=== PATIENT | male | born 1935 | race Caucasian/White ===

== ENCOUNTER 2016-10-31 07:54 | Outpatient (CLI) | payer MEDICARE, OTHER ==
[2016-10-31 13:42] LABS: BASOPHILS # (AUTO) 0.1 10^3/uL (0.0-0.1); EOSINOPHILS # (AUTO) 0.1 10^3/uL (0.0-0.7); EOSINOPHILS % (AUTO) 2.8 %; HCT - HEMATOCRIT 42.9 % (42.0-52.0); HGB - HEMOGLOBIN 14.6 g/dL (14.0-18.0); LYMPHOCYTES # (AUTO) 1.2 10^3/uL (1.5-3.5); LYMPHOCYTES % (AUTO) 23.3 %; MEAN CORPUSCULAR HEMOGLOBIN 32.1 pg (27.0-31.0); MEAN CORPUSCULAR HGB CONC 34.1 g/dL (32.0-36.0); MEAN PLATELET VOLUME 8.5 fL (7.4-11.4); MONOCYTES # (AUTO) 0.5 10^3/uL (0.0-1.0); MONOCYTES % (AUTO) 10.1 %; NEUTROPHILS # (AUTO) 3.2 10^3/uL (1.5-6.6); NEUTROPHILS % (AUTO) 62.8 %; NUCLEATED RED BLOOD CELLS AUTO 0.1 /100WBC; RED BLOOD COUNT 4.56 10^6/uL (4.70-6.10); RED CELL DISTRIBUTION WIDTH 12.9 % (12.0-15.0)
[2016-10-31 14:00] LABS: ALBUMIN/GLOBULIN RATIO 1.7 (1.0-2.2); BILIRUBIN,TOTAL 0.7 mg/dL (0.2-1.0); CALCIUM 9.8 mg/dL (8.5-10.3); CREATININE 0.8 mg/dL (0.6-1.2); POTASSIUM 4.1 mmol/L (3.5-5.0); TOTAL PROTEIN 7.2 g/dL (6.7-8.2)
[2016-10-31 14:30] LABS: HEMOGLOBIN A1C 0.62 g/dL
== END 2016-10-31 07:55 | disposition home or self-care (01) ==
LOC: LAB.R 07:54
PROVIDERS: ATTEND Internal Medicine
DX: E78.2 Mixed hyperlipidemia (principal); R73.09 Other abnormal glucose; Z79.899 Other long term (current) drug therapy
CPT/HCPCS: 80053; 83036; 85025

== ENCOUNTER 2017-11-03 06:45 | Outpatient (CLI) | payer MEDICARE ==
[2017-11-03 07:05] LABS: BASOPHILS # (AUTO) 0.1 10^3/uL (0.0-0.1); EOSINOPHILS # (AUTO) 0.2 10^3/uL (0.0-0.7); EOSINOPHILS % (AUTO) 3.5 %; HGB - HEMOGLOBIN 14.5 g/dL (14.0-18.0); LYMPHOCYTES # (AUTO) 1.5 10^3/uL (1.5-3.5); LYMPHOCYTES % (AUTO) 24.7 %; MEAN CORPUSCULAR HEMOGLOBIN 32.1 pg (27.0-31.0); MEAN CORPUSCULAR HGB CONC 33.8 g/dL (32.0-36.0); MEAN CORPUSCULAR VOLUME 94.7 fL (80.0-94.0); MEAN PLATELET VOLUME 7.6 fL (7.4-11.4); MONOCYTES # (AUTO) 0.5 10^3/uL (0.0-1.0); MONOCYTES % (AUTO) 8.3 %; NEUTROPHILS # (AUTO) 3.8 10^3/uL (1.5-6.6); NEUTROPHILS % (AUTO) 62.5 %; PLT - PLATELET COUNT 221 10^3/uL (130-450); RED BLOOD COUNT 4.53 10^6/uL (4.70-6.10); WHITE BLOOD COUNT 6.1 x10^3/uL (4.8-10.8)
[2017-11-03 07:21] LABS: ALBUMIN 4.1 g/dL (3.2-5.5); ALBUMIN/GLOBULIN RATIO 1.3 (1.0-2.2); ALKALINE PHOSPHATASE 53 IU/L (42-121); ALT ALANINE AMINOTRANSFERASE 18 IU/L (10-60); AST ASPARTATE AMINOTRANSFERASE 18 IU/L (10-42); BILIRUBIN,TOTAL 0.7 mg/dL (0.2-1.0); BUN - BLOOD UREA NITROGEN 18 mg/dL (6-20); CALCIUM 9.6 mg/dL (8.5-10.3); CARBON DIOXIDE - CO2 29 mmol/L (21-32); CHLORIDE 99 mmol/L (101-111); CHOL/HDL RATIO 4.3 (<5.0); CHOLESTEROL 190 mg/dL; CREATININE 0.8 mg/dL (0.6-1.2); GFR - MDRD 93 (>89); GLUCOSE 131 mg/dL (70-100); HDL CHOLESTEROL 44 mg/dL; LDL CHOLESTEROL,CALCULATED 115 mg/dL; LDL/HDL RATIO 2.6 (<3.6); SODIUM 135 mmol/L (135-145); TOTAL PROTEIN 7.3 g/dL (6.7-8.2); VLDL CHOLESTEROL 31 mg/dL
[2017-11-03 07:46] LABS: HB2 TOTAL 15.8 g/dL; HEMOGLOBIN A1C 0.64 g/dL; HEMOGLOBIN A1C % 5.9 % (4.6-6.2)
== END 2017-11-03 06:46 | disposition home or self-care (01) ==
LOC: LAB 06:45
PROVIDERS: ATTEND Internal Medicine
DX: K22.70 Barrett's esophagus without dysplasia (principal); E78.5 Hyperlipidemia, unspecified; E11.9 Type 2 diabetes mellitus without complications; Z79.899 Other long term (current) drug therapy; Z12.5 Encounter for screening for malignant neoplasm of prostate
CPT/HCPCS: 36415; 80053; 80061; 83036; 85025; G0103; 83721; 84153

== ENCOUNTER 2018-08-10 07:32 | Outpatient (CLI) | payer MEDICARE ==
[2018-08-10 08:41] LABS: ALBUMIN 4.2 g/dL (3.2-5.5); ALBUMIN/GLOBULIN RATIO 1.5 (1.0-2.2); ALKALINE PHOSPHATASE 54 IU/L (42-121); ALT ALANINE AMINOTRANSFERASE 17 IU/L (10-60); AST ASPARTATE AMINOTRANSFERASE 19 IU/L (10-42); BILIRUBIN,TOTAL 0.8 mg/dL (0.2-1.0); BUN - BLOOD UREA NITROGEN 17 mg/dL (6-20); CALCIUM 9.4 mg/dL (8.5-10.3); CARBON DIOXIDE - CO2 28 mmol/L (21-32); CHLORIDE 100 mmol/L (101-111); CHOL/HDL RATIO 4.1 (<5.0); CHOLESTEROL 191 mg/dL; CREATININE 0.8 mg/dL (0.6-1.2); GFR - MDRD 93 (>89); GLUCOSE 144 mg/dL (70-100); HDL CHOLESTEROL 47 mg/dL; LDL CHOLESTEROL,CALCULATED 118 mg/dL; LDL/HDL RATIO 2.5 (<3.6); SODIUM 135 mmol/L (135-145); VLDL CHOLESTEROL 26 mg/dL
== END 2018-08-10 07:33 | disposition home or self-care (01) ==
LOC: LAB 07:32
PROVIDERS: ATTEND Internal Medicine
DX: R73.02 Impaired glucose tolerance (oral) (principal); E78.5 Hyperlipidemia, unspecified; K21.9 Gastro-esophageal reflux disease without esophagitis
CPT/HCPCS: 36415; 80053; 80061; 82951; 83721

== ENCOUNTER 2018-08-13 07:33 | Outpatient (CLI) | payer MEDICARE | END 2018-08-13 07:34 | disposition home or self-care (01) | LOC: LAB 07:33 | PROVIDERS: ATTEND Internal Medicine | DX: R73.02 Impaired glucose tolerance (oral) (principal); E78.5 Hyperlipidemia, unspecified; K21.9 Gastro-esophageal reflux disease without esophagitis | CPT/HCPCS: 36415; 82951 ==

== ENCOUNTER 2021-01-11 09:00 | Outpatient (CLI) | payer MEDICARE ==
--- NOTE | 2021-01-12 09:30 | XRAY Report ---
PROCEDURE: Ankle 3 View LT INDICATIONS: L ANKLE PX TECHNIQUE: 3 weightbearing views of the ankle were acquired. COMPARISON: None FINDINGS: Bones: Mildly displaced oblique fracture of the distal left fibula.. Ankle mortise is normally align ed. No suspicious bony lesions. Soft tissues: No tibiotalar joint effusion. Achilles tendon appears normal. IMPRESSION: Left fibular fracture. Reviewed by: Fransisco Castle MD on 01/12/2021 9:29 AM PDT Approved by: Fransisco Castle MD on 01/12/2021 9:29 AM PDT Station ID: [id number]
== END 2021-01-11 23:59 | disposition home or self-care (01) ==
LOC: DI.N 09:00
PROVIDERS: ATTEND Physician Assistant
DX: S82.832A Other fracture of upper and lower end of left fibula, initial encounter for closed fracture (principal)

== ENCOUNTER 2021-03-26 06:55 | Outpatient (CLI) | payer MEDICARE ==
[2021-03-26 07:46] LABS: ALBUMIN 4.7 g/dL (3.2-5.5); ALBUMIN/GLOBULIN RATIO 1.7 (1.0-2.2); ALKALINE PHOSPHATASE 60 IU/L (42-121); ALT ALANINE AMINOTRANSFERASE 20 IU/L (10-60); AST ASPARTATE AMINOTRANSFERASE 18 IU/L (10-42); BUN - BLOOD UREA NITROGEN 21 mg/dL (6-20); CALCIUM 10.1 mg/dL (8.5-10.3); CARBON DIOXIDE - CO2 27 mmol/L (21-32); CHLORIDE 101 mmol/L (101-111); CHOL/HDL RATIO 3.1 (<5.0); CHOLESTEROL 209 mg/dL; CREATININE 0.8 mg/dL (0.6-1.2); GFR - MDRD 92 (>89); GLUCOSE 140 mg/dL (70-100); HDL CHOLESTEROL 67 mg/dL; LDL CHOLESTEROL,CALCULATED 122 mg/dL; LDL/HDL RATIO 1.8 (<3.6); POTASSIUM 4.3 mmol/L (3.5-5.0); SODIUM 138 mmol/L (135-145); TOTAL PROTEIN 7.5 g/dL (6.7-8.2); TRIGLYCERIDES 101 mg/dL; VLDL CHOLESTEROL 20 mg/dL
[2021-03-26 10:39] LABS: ESTIMATED AVERAGE GLUCOSE 131 mg/dL (70-100); HEMOGLOBIN A1c% 6.2 % (4.27-6.07)
== END 2021-03-26 06:56 | disposition home or self-care (01) ==
LOC: LAB 06:55
PROVIDERS: ATTEND Internal Medicine
DX: E11.9 Type 2 diabetes mellitus without complications (principal); N40.1 Benign prostatic hyperplasia with lower urinary tract symptoms; N13.8 Other obstructive and reflux uropathy; K21.9 Gastro-esophageal reflux disease without esophagitis
CPT/HCPCS: 36415; 80053; 80061; 83036; 83721

== ENCOUNTER 2022-11-04 11:35 | Emergency (ER) | payer MEDICARE ==
[2022-11-04] MEDS ORDERED: BUFFERED LIDOCAINE 10 ML SYRINGE SUBQ STA (12:27)
[2022-11-04] MEDS ORDERED: TETANUS/DIPHTHERIA/PERTUSSIS 0.5 ML SYRINGE IM ONE (12:30)
[2022-11-04] MEDS ORDERED: cephALEXin 250 MG CAPSULE PO STA (12:31)
--- NOTE | 2022-11-04 12:31 | ED Physician Documentation ---
PD HPI UPPER EXT INJURY - Stated complaint Stated Complaint: LT FINGER LAC - Chief complaint Chief Complaint: Laceration - History obtained from History obtained from: Patient (Right-handed 86-year-old gentleman was using a hoof trimmer this morning and cut his nondominant, left second finger just prior to arrival. Tetanus status is unknown. No other injuries.) PD PAST MEDICAL HISTORY - Present Medications Home Medications: Ambulatory Orders Medication Instructions Recorded Confirmed cephALEXin [Keflex] 500 mg PO Q6H #28 cap 11/04/22 - Allergies Allergies/Adverse Reactions: Allergies Allergy/AdvReac Type Severity Reaction Status Date / Time No Known Drug Allergies Allergy Verified 11/04/22 11:51 PD ED PE NORMAL - Vitals Vital signs reviewed: Yes - General General: Alert and oriented X 3, No acute distress - Extremities Extremities: Other (There is a slightly greater than 2 cm curved laceration on the radial side of the left index finger at the level of the mid phalanx. No distal neurovascular compromise.) - Neuro Neuro: Alert and oriented X 3, Normal speech Results - Vitals Vitals: Vital Signs - 24 hr 11/04/22 11:48 Temperature 36.2 C L Heart Rate 66 Respiratory 16 Rate Blood Pressure 130/63 O2 Saturation 98 Oxygen O2 Source Room air - Rads (name of study) L 2nd finger Relevant Findings:: Final report received, EMP independent interpretation of test Procedures - Laceration (location) L 2nd finger Length in cm: 3 Wound type: Stellate Neurovascular status: Sensory intact, Motor intact, Vascular intact Anesthesia: Lidocaine 1% (Digital block with buffered lidocaine with excellent anesthesia.) Wound preparation: Chlorhexadine, Irrigated copiously NS, Wound explored, To the base, debridement of wound edges (traumatic laceration/avulsion) Skin layer closure: Nylon, Interrupted, Size #-0 - enter number (4-0), Sutures - enter # (10) Other: Patient tolerated well, No complications, Neurovascular intact, Tetanus booster given Departure - Departure Disposition: 01 Home, Self Care Clinical Impression: Open fracture of finger of left hand, Laceration Condition: Good Record reviewed to determine appropriate education?: Yes Instructions: ED Fx Finger Open, ED Laceration Hand Follow-Up: [facility] [Provider Group] Prescriptions: cephALEXin [Keflex] 500 mg PO Q6H #28 cap Comments: You should follow-up with the orthopedic office in about a week, call today for an appointment in about a week for recheck. For wound care: You can wash briefly with soap and water and then apply bacitracin ointment which is available [id number] and a gauze wrap and then the splint over that. Tylenol and/or ibuprofen as needed for pain and elevation for pain. Return if worse. Plan for suture removal in about 2 weeks. You can follow-up with your primary for this or the orthopedics office may handle that as well.
--- NOTE | 2022-11-04 12:55 | XRAY Report ---
PROCEDURE: Finger(s) LT INDICATIONS: Trauma TECHNIQUE: AP hand, 2 views of the second finger(s) acquired. COMPARISON: None FINDINGS: Bones: There are bony fragments at the distal shaft of the middle phalanx of the second finger near the DIP joint, likely representing acute fracture fragments off the lateral aspect of the bone. No s uspicious bony lesions. Soft tissues: No suspicious soft tissue calcifications or masses. IMPRESSION: Small fracture fragments at the lateral aspect of the distal middle phalanx of the second finger near the DIP joint Reviewed by: Red Perez MD on 11/04/2022 12:54 PM PDT Approved by: Red Perez MD on 11/04/2022 12:54 PM PDT Station ID: [id number]
[2022-11-04 13:31] VITALS: BP 133/61
== END 2022-11-04 13:28 | disposition home or self-care (01) ==
LOC: ED 11:35
DX: S62.601B Fracture of unspecified phalanx of left index finger, initial encounter for open fracture (principal); W29.3XXA Contact with powered garden and outdoor hand tools and machinery, initial encounter; Z23 Encounter for immunization
CPT/HCPCS: 12002; 73140; 90471; 90715; 99283; A9270

== ENCOUNTER 2022-11-12 08:00 | Outpatient (CLI) | payer MEDICARE ==
--- NOTE | 2022-11-12 15:39 | XRAY Report ---
PROCEDURE: Finger(s) LT INDICATIONS: LEFT INDEX FINGER FRACTURE TECHNIQUE: AP hand, 2 views of the second finger(s) acquired. COMPARISON: None. FINDINGS: Bones: Second middle phalangeal cortical fracture best depicted on the AP image and possible avulsio n fracture noted at the base of the distal phalanx as well Soft tissues: No suspicious soft tissue calcifications or masses. IMPRESSION: Small cortical middle phalanx fracture and possible small volume fracture base of the second distal p halanx Reviewed by: Juan Manuel Melo MD on 11/12/2022 2:38 PM AKDT Approved by: Juan Manuel Melo MD on 11/12/2022 2:38 PM AKDT Station ID: [id number]
== END 2022-11-12 23:59 | disposition home or self-care (01) ==
LOC: DI.WOS 08:00
PROVIDERS: ATTEND Physician Assistant Surgical
DX: S62.621A Displaced fracture of middle phalanx of left index finger, initial encounter for closed fracture (principal)

== ENCOUNTER 2022-12-03 13:00 | Outpatient (CLI) | payer MEDICARE ==
--- NOTE | 2022-12-03 21:59 | XRAY Report ---
PROCEDURE: Finger(s) LT INDICATIONS: LEFT INDEX FINGER FRACTURE TECHNIQUE: 3 views of the left hand second digit COMPARISON: 11/12/2022, 11/04/2022 FINDINGS: Bones: Redemonstrated cortical irregularity of the lateral aspect of the second digit middle phalanx distally. Possible avulsion fracture of the volar base of the distal phalanx similar to before. Soft tissues: No suspicious soft tissue calcifications IMPRESSION: Redemonstrated cortical irregularity of the lateral aspect of the second digit middle phalanx distall y similar in appearance to before. Possible avulsion fracture of the volar base of the distal phalanx similar to before. Reviewed by: Stalin Campa MD on 12/03/2022 9:58 PM PDT Approved by: Stalin Campa MD on 12/03/2022 9:58 PM PDT Station ID: [id number]
== END 2022-12-03 23:59 | disposition home or self-care (01) ==
LOC: DI.WOS 13:00
PROVIDERS: ATTEND Physician Assistant Surgical
DX: S62.621B Displaced fracture of middle phalanx of left index finger, initial encounter for open fracture (principal)

== ENCOUNTER 2023-10-04 11:32 | Outpatient (CLI) | payer MEDICARE | END 2023-10-04 23:59 | disposition critical access hospital (66) | LOC: EMS 11:32 | DX: R53.1 Weakness (principal); N39.0 Urinary tract infection, site not specified; R60.0 Localized edema; F41.9 Anxiety disorder, unspecified; Z74.2 Need for assistance at home and no other household member able to render care | CPT/HCPCS: A0425; A0429 ==

== ENCOUNTER 2023-10-04 11:45 | Emergency (ER) | payer MEDICARE ==
--- NOTE | 2023-10-04 12:20 | ED Physician Documentation ---
History of Present Illness - Stated complaint Stated Complaint: HOSPICE/ESOPH CANCER END STAGE - Chief complaint Chief Complaint: General - History obtained from History obtained from: Patient, Family, EMS - History of Present Illness Timing: Today - Additonal information Additional information: 87-year-old Brayan Myles presents to the emergency department today with a chief complaint that he is not ready to yet as he has details to settle before he dies. He felt an overwhelming impending doom today. He has advanced esophageal cancer and is refusing care. The family is here with him an indicate he lives alone and is not eating or drinking well and family is wanting placement. Review of Systems Unable to obtain: Uncooperative Constitutional: denies: Fever Ears: denies: Ear pain Nose: reports: Congestion GI: reports: Constipation. denies: Vomiting : reports: Unable to Void PD PAST MEDICAL HISTORY - Past Medical History Past Medical History: Yes GI: Other Other Past Medical History: esophageal cancer - Present Medications Home Medications: Ambulatory Orders Medication Instructions Recorded Confirmed Amox/Clav 875/125 [Augmentin 1 tab PO DAILY 10/04/23 10/04/23 875/125 Tab] Lactulose 10 gm PO DAILY 10/04/23 10/04/23 Omeprazole 20 mg PO DAILY 10/04/23 10/04/23 Potassium Chloride 10 meq PO DAILY 10/04/23 10/04/23 Sennosides 8.6 mg PO DAILY 10/04/23 10/04/23 Torsemide 10 mg PO DAILY 10/04/23 10/04/23 dexAMETHasone [Decadron] 4 mg PO ONCE 10/04/23 10/04/23 - Allergies Allergies/Adverse Reactions: Allergies Allergy/AdvReac Type Severity Reaction Status Date / Time No Known Drug Allergies Allergy Verified 10/04/23 11:58 - Social History Does the pt smoke?: No Smoking Status: Never smoker PD ED PE NORMAL - Vitals Vital signs reviewed: Yes (normal ) - General General: No acute distress, Other (speaks quietly answers appropriatley preferrs eyes closed. ) - HEENT HEENT: Atraumatic, PERRL, EOMI, Other (parched mucous membranes ) - Neck Neck: Supple, no meningeal sign, No bony TTP - Cardiac Cardiac: RRR, No murmur - Respiratory Respiratory: No respiratory distress, Clear bilaterally - Abdomen Abdomen: Soft, Non tender - Back Back: No CVA TTP, No spinal TTP - Derm Derm: Normal color, Warm and dry, No rash - Extremities Extremities: No deformity, No edema - Neuro Neuro: field auditor 2-12 intact, No motor deficit, No sensory deficit Eye Opening: To Voice Motor: Obeys Commands Verbal: Oriented GCS Score: 14 - Psych Psych: Normal mood, Normal affect Results - Vitals Vitals: Vital Signs - 24 hr 10/04/23 10/04/23 10/04/23 11:54 14:37 16:00 Temperature 35.9 C L Heart Rate 76 71 74 Respiratory 18 16 16 Rate Blood Pressure 102/74 105/65 98/57 L O2 Saturation 98 99 98 10/04/23 18:00 Temperature Heart Rate 77 Respiratory 16 Rate Blood Pressure 101/66 O2 Saturation 97 Oxygen O2 Source Room air - Labs Labs: Laboratory Tests 10/04/23 10/04/23 10/04/23 13:16 13:16 13:16 WBC 11.1 H RBC 3.18 L Hgb 7.8 L Hct 26.2 L MCV 82.4 MCH 24.5 L MCHC 29.8 L RDW 18.5 H Plt Count 138 MPV 11.3 Neut # (Auto) 10.0 H Lymph # (Auto) 0.5 L [place] # (Auto) 0.6 Eos # (Auto) 0.0 Baso # (Auto) 0.0 Absolute Nucleated RBC 0.00 Nucleated RBC % 0.0 Sodium 135 Potassium 2.9 L Chloride 98 L Carbon Dioxide 28 Anion Gap 9.0 BUN 43 H Creatinine 0.9 Estimated GFR (MDRD) 80 L Glucose 110 H Calcium 9.8 Total Bilirubin 0.8 AST 34 ALT 46 Alkaline Phosphatase 134 H Total Protein 5.5 L Albumin 3.4 Globulin 2.1 Albumin/Globulin Ratio 1.6 Lipase 66 Urine Color YELLOW Urine Clarity CLEAR Urine pH 5.5 Ur Specific [place] 1.015 Urine Protein NEGATIVE Urine Glucose (UA) NEGATIVE Urine Ketones NEGATIVE Urine Occult Blood NEGATIVE Urine Nitrite NEGATIVE Urine Bilirubin NEGATIVE Urine Urobilinogen 0.2 (NORMAL) Ur Leukocyte Esterase NEGATIVE Ur Microscopic Review NOT INDICATED Urine Culture Comments NOT INDICATED PD Medical Decision Making - ED course Complexity details: reviewed results, re-evaluated patient, considered different ial, d/w patient, d/w family Reviewed Lab Results: We reviewed a complete blood count showing an elevated white blood count cell count of 11.1 hemoglobin decreased at 7.8 hematocrit decreased at 26.2 his comparisons are from 2018 and they were normal at that time. Platelets are normal at 138,000. Chemistries show abnormality to the potassium of 2.9 BUN is markedly elevated at 43 with a normal creatinine of 0.9 alkaline phosphatase mildly elevated at 134. These laboratories indicate the patient has a significant anemia likely related to his cancer and markedly elevated BUN of 43 concerning for the possibility of ingested blood. ED course: 87-year-old male refusing treatment and requesting placement. He will need more help at home then he is able to get with the family that he has in the area. cattle alley worker was consulted in the case and plans were made for placement which will not occur for 2 days. Patient will be placed into a hospital bed. He was administered PO potassium. The patient complained of being unable to urinate was found to have a full bladder and a Marcano catheter was placed with draining drainage of clear urine. He subsequently complained of difficulty with constipation and he was given a dose of milk of magnesia without any specific results and he is now being given an enema. Departure - Departure Clinical Impression: Hypokalemia, Acute urinary retention Constipation Qualifiers: Constipation type: unspecified constipation type Qualified Code(s): K59.00 - Constipation, unspecified Forms: PCP List
[2023-10-04 13:26] LABS: BASOPHILS % (AUTO) 0.1 %; BILIRUBIN,URINE NEGATIVE (NEGATIVE); CLARITY,URINE CLEAR (CLEAR); GLUCOSE, URINE (UA) NEGATIVE (NEGATIVE); HCT - HEMATOCRIT 26.2 % (42.0-52.0); HGB - HEMOGLOBIN 7.8 g/dL (14.0-18.0); KETONES,URINE (UA) NEGATIVE (NEGATIVE); LEUKOCYTE ESTERASE, URINE NEGATIVE (NEGATIVE); LYMPHOCYTES # (AUTO) 0.5 10^3/uL (1.5-3.5); LYMPHOCYTES % (AUTO) 4.1 %; MEAN CORPUSCULAR HEMOGLOBIN 24.5 pg (27.0-31.0); MEAN CORPUSCULAR HGB CONC 29.8 g/dL (32.0-36.0); MEAN CORPUSCULAR VOLUME 82.4 fL (80.0-94.0); MEAN PLATELET VOLUME 11.3 fL (7.4-11.4); MONOCYTES # (AUTO) 0.6 10^3/uL (0.0-1.0); MONOCYTES % (AUTO) 5.5 %; NEUTROPHILS % (AUTO) 89.8 %; NITRITE,URINE NEGATIVE (NEGATIVE); OCCULT BLOOD,URINE NEGATIVE (NEGATIVE); PH,URINE 5.5 PH (5.0-7.5); PLT - PLATELET COUNT 138 10^3/uL (130-450); PROTEIN,URINE NEGATIVE (NEGATIVE); RED BLOOD COUNT 3.18 10^6/uL (4.70-6.10); RED CELL DISTRIBUTION WIDTH 18.5 % (12.0-15.0); UROBILINOGEN,URINE 0.2 (NORMAL) E.U./dL (NORMAL); WHITE BLOOD COUNT 11.1 x10^3/uL (4.8-10.8)
[2023-10-04 13:36] LABS: ALBUMIN 3.4 g/dL (3.2-5.5); ALBUMIN/GLOBULIN RATIO 1.6 (1.0-2.2); BILIRUBIN,TOTAL 0.8 mg/dL (0.2-1.0); CALCIUM 9.8 mg/dL (8.5-10.3); CREATININE 0.9 mg/dL (0.6-1.3); POTASSIUM 2.9 mmol/L (3.5-4.5); TOTAL PROTEIN 5.5 g/dL (6.4-8.9)
[2023-10-04] MEDS: MAGNESIUM HYDROXIDE 2,400 MG/30 ML UDC PO STA (15:19)
[2023-10-04] MEDS: POTASSIUM BICARB 25 MEQ TABLET PO STA (19:21)
[2023-10-05] MEDS: LACTULOSE 10 GM /15 ML UDC PO STA (06:49)
[2023-10-05] MEDS: bisacodyL 5 MG TABLET PO STA (06:49)
--- NOTE | 2023-10-05 08:02 | PHARMACY PROGRESS NOTE ---
- Best Possible Medication History Admit Date and Time: Processed by: Nursing Medications reviewed in ED?: Yes Secondary Source(s): Pharmacy records, Insurance records As the person ultimately responsible for medication therapy, providers are able to order a medication from an existing home medication list in [facility] via the "Reconcile Routine" prior to Confirmation of that medication by software support representative. Such practice is discouraged except when the physician, in their clinical judgment, deems that a medical need exists for a medication without regard to previous use.
[2023-10-05] MEDS: PANTOPRAZOLE 40 MG TABLET PO SCH (08:36)
[2023-10-05] MEDS: LACTULOSE 10 GM /15 ML UDC PO SCH (08:36)
[2023-10-05] MEDS: TORSEMIDE 20 MG TABLET PO SCH (08:36)
[2023-10-05] MEDS: POTASSIUM CHLORIDE 10 MEQ CAPSULE PO SCH (08:36)
[2023-10-05] MEDS ORDERED: TORSEMIDE 20 MG TABLET PO SCH (09:00)
[2023-10-05] MEDS: MAGNESIUM HYDROXIDE 2,400 MG/30 ML UDC PO STA (21:40)
--- NOTE | 2023-10-05 21:58 | ED Physician Documentation ---
ED Addendum - Addendum Addendum: 10/05/23 21:58 No changes during my shift. Patient signed out to the oncoming emergency department physician.
[2023-10-05] MEDS: SODIUM CHLORIDE 0.9% 500 ML IV STA (23:19)
[2023-10-06] MEDS: GLYCERIN ADULT SUPP PR STA (00:31)
--- NOTE | 2023-10-06 09:01 | ED Physician Documentation ---
ED Addendum - Addendum Addendum: 10/06/23 Patient remains boarding in the emergency department is social work is making arrangements for adult family home as well as with hospice. Patient is eager to be discharged from the emergency department. Otherwise no specific complaints. Was asked by the RN to review his medications and he does have medications that are unclear as to why he is taking it such as Augmentin. Did ask patient why he was prescribed this on September 30 and he states he is unsure. At this time he does not want to take the antibiotic. I was also asked by social work to complete a POLST form with the patient as his prior POLST is unable to be located despite reaching out to his prior hospice company, PCP and family checking at home. I did review what a POLST form is with the patient and we discussed each option. Patient would like to be a DNR as well as comfort measures only.Form completed and ACTIVITIES DIRECTOR to scan into chart. 10/06/23 10:15 Per YOSSI Reaves, Patient has been accepted into [facility] in [place], And we can start arranging for transportation. Departure - Departure Disposition: 01 Home, Self Care Clinical Impression: Hypokalemia, Acute urinary retention, Esophageal cancer Constipation Qualifiers: Constipation type: unspecified constipation type Qualified Code(s): K59.00 - Constipation, unspecified Condition: Fair Instructions: ED Catheter Care Marcano Comments: You will be going to [facility]. oncology social worker has also been working to set up a new hospice company for you. A Marcano catheter was placed into your bladder on 10/04/23 as your bladder was not emptying. Depending on your wishes this could be removed in 5-7 days to see if you are able to void on your own. Return to the emergency department with any concerns. Forms: PCP List
[2023-10-06 13:17] VITALS: BP 77/52; O2SAT 98
== END 2023-10-06 13:31 | disposition home or self-care (01) ==
LOC: EDUNIT# → ED 11:45
DX: R33.9 Retention of urine, unspecified (principal); E87.6 Hypokalemia; K59.00 Constipation, unspecified; C15.9 Malignant neoplasm of esophagus, unspecified; Z75.1 Person awaiting admission to adequate facility elsewhere; Z60.2 Problems related to living alone; Z79.899 Other long term (current) drug therapy; Z66 Do not resuscitate
CPT/HCPCS: 36415; 80053; 81003; 83690; 85025; 99283; 99284; A9270; 81001; 87086